=== PATIENT | male | born 1970 | race Caucasian/White ===

== ENCOUNTER 2016-05-14 01:11 | Emergency (ER) | payer SELFPAY ==
[~2016-05-14] VITALS: Ht 170.2 cm; Wt 74.8 kg
[~2016-05-14 01:11] MED LIST: AMOX500T2 PO; CODE-54 PO; PRED20TA PO
[2016-05-14] MEDS ORDERED: OFLOXACIN 0.3% OD ONE (01:40)
[2016-05-14] MEDS ORDERED: ED- HYDROcodone/ACETAMINOPHEN 5MG/325MG (NORCO) 6 TABLETS/BTL PO ONE (01:45)
[2016-05-14] MEDS ORDERED: HYDR-3702 PO (01:48)
[2016-05-14 02:05] VITALS: BP 148/89
== END 2016-05-14 02:03 | disposition home or self-care (01) ==
LOC: ED 01:12
DX: H60.311 Diffuse otitis externa, right ear (principal)
CPT/HCPCS: 99282; 99283